=== PATIENT | male | born 1950 | race Caucasian/White ===

== ENCOUNTER → 2024-03-07 12:54 | Outpatient (REF) | payer OTHER, SELFPAY | LOC: HWRCS 12:54 | PROVIDERS: ATTENDING PHYSICIAN Student in an Organized Health Care Education/Training Program; FAMILY PHYSICIAN Internal Medicine | DX: I71.21 Aneurysm of the ascending aorta, without rupture (principal) | CPT/HCPCS: 93306 ==

== ENCOUNTER 2024-11-25 18:15 | Emergency (ER) | payer OTHER, SELFPAY ==
[2024-11-25 18:23] VITALS: BP 164/85
[2024-11-25 18:36] LABS: Hematocrit 44.1 % (39.0-52.0); Hemoglobin 15.1 g/dL (13.0-18.0); Mean Corp Hgb Conc. 34.2 g/dL (33.0-37.0); Mean Corpuscular Volume 90.0 fL (80.0-94.0); Nucleated Red Blood Cells % 0 % (-); Platelet Count 226 10^3/uL (130-400); Red Cell Dist. Width 13.2 % (11.5-14.5)
[2024-11-25 18:58] LABS: Troponin I < 0.012 ng/ml
[2024-11-25 19:01] LABS: ALT (SGPT) 33 U/L (0-50); AST (SGOT) 25 U/L (17-59); Albumin 4.7 g/dl (3.5-5.0); Alkaline Phosphatase 48 U/L (38-126); Blood Urea Nitrogen 28 mg/dl (9-20); Calcium 9.4 mg/dl (8.4-10.2); Carbon Dioxide 21 mmol/L (22-30); Chloride 106 mmol/L (98-107); Glucose 131 mg/dl (70-99); Potassium 4.3 mmol/L (3.5-5.1); Sodium 138 mmol/L (135-145); Total Protein 7.1 g/dl (6.3-8.2); eGFR > 60.00
--- NOTE | 2024-11-25 20:22 | ED.GENMED ---
History of Present Illness
General
Chief Complaint: Cardiac Symptoms
Time Seen by Provider: 11/25/24 20:21
History of Present Illness
History of Present Illness:
FOCUSED PAST MEDICAL HISTORY
- High blood pressure, hyperlipidemia, EF 45%
REVIEW OF OLD RECORDS
- I reviewed the cath report from [address] Brewer that showed normal coronaries but did show an EF of 37% with moderate global hypokinesis
Note:
CHIEF COMPLAINT(S)
Palpitations and frequent premature ventricular contractions (PVCs).
HISTORY OF PRESENT ILLNESS
The patient is a 74-year-old male with a history of decreased ejection fraction and past heart catheterization in 2016. He has been followed by cardiology since 2016 for cardiac concerns, including known premature ventricular contractions (PVCs).
The patient reported typically feeling PVCs once a week or once a month, which he described as 'fluttering.' However, today he began experiencing them with every breath, which prompted his visit. He mentions that the symptoms started today around
5:00 PM. He denies chest pain, and no leg swelling was observed. 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 No electrocardiogram was performed at that visit. His most
recent echocardiogram six months ago showed an ejection fraction of 45%. On arrival, the patients electrocardiogram demonstrated multiple PVCs, with every other beat showing extrasystole. He has not taken his evening dose of carvedilol yet today.
ADDITIONAL HISTORY OBTAINED FROM SOURCES OTHER THAN THE PATIENT
No external sources provided additional information.
EXTERNAL RECORDS REVIEWED
Review of past cardiology records shows decreased ejection fraction and PVCs. No recent cardiology consultations provided additional actionable insights.
CHRONIC MEDICAL CONDITIONS SIGNIFICANTLY AFFECTING CARE
The patient has a history of decreased ejection fraction and is under treatment for heart failure.
SOCIAL HISTORY
No significant changes noted. The patient did not report any alcohol or substance use.
MEDICATIONS
The patient is currently taking carvedilol 6.25 mg twice daily. He also mentioned being prescribed Jardiance and an uncertain medication possibly related to heart failure.
REVIEW OF SYSTEMS
- Cardiovascular: Frequent premature ventricular contractions reported today.
- Respiratory: No labored breathing reported.
- Gastrointestinal: No reports of nausea or vomiting.
PHYSICAL EXAM
General: Alert, no acute distress.
Skin: Warm, dry.
Head: Normocephalic, atraumatic.
Neck: Supple, trachea midline.
Eye Ears, nose, mouth and throat: Oral mucosa moist.
Cardiovascular: Normal peripheral perfusion, No edema observed. Occasional PVCs noted
Respiratory: Respirations are non-labored.
Gastrointestinal: Abdomen nondistended.
Back: Normal range of motion, Normal alignment.
Musculoskeletal: Normal range of motion, normal strength.
Neurological: Alert and oriented to person, place, time, and situation, No focal neurological deficit observed.
Psychiatric: Cooperative, appropriate mood & affect.
PROBLEM LIST
Acute Problems:
- Palpitations with frequent PVCs
Chronic Problems:
- Decreased ejection fraction with history of heart failure
PLAN
- Administer the evening dose of carvedilol while the patient is under monitoring.
- Consult with the cardiology team for further guidance on management of the patients frequent PVCs.
- Continue cardiac monitoring for safety and stability assessment.
- Follow-up echocardiogram is scheduled to reassess ejection fraction.
DIFFERENTIAL DIAGNOSIS
The Differential Diagnosis includes, in no particular order and is not limited to:
1. Premature Ventricular Contractions (PVCs)
2. Atrial Fibrillation
3. Heart Failure exacerbation
4. Coronary Artery Disease
5. Myocardial Ischemia
6. Electrolyte Imbalance
7. Hyperthyroidism
8. Anxiety-induced palpitations
9. Atrial Flutter
10. Ventricular Tachycardia
Disposition:
SUMMARY OF ENCOUNTER
The patient, a 74-year-old male with a history of decreased ejection fraction and premature ventricular contractions (PVCs), presented to the emergency department due to experiencing frequent PVCs with every breath. The patient typically feels these
PVCs once a week or once a month, but the sudden increase prompted the visit. On arrival, his electrocardiogram demonstrated multiple PVCs, with extrasystole occurring every other beat. The patient had not yet taken his evening dose of carvedilol.
Management included administering the evening dose of carvedilol under monitoring to assess the patients response. The cardiology team was consulted to discuss further management strategies for the patient�s frequent PVCs.
PLAN
- Administer the evening dose of carvedilol under monitoring to evaluate the patients response.
- Consult with the cardiology team for guidance on the management of frequent PVCs.
- Continue cardiac monitoring for safety and stability assessment.
- Schedule a follow-up echocardiogram to reassess ejection fraction.
MEDICAL DECISION MAKING
1. Number and Complexity of Problems Addressed: Chronic conditions affecting care include decreased ejection fraction with history of heart failure, and frequent premature ventricular contractions. Differential diagnosis includes premature
ventricular contractions (PVCs), atrial fibrillation, heart failure exacerbation, coronary artery disease, myocardial ischemia, electrolyte imbalance, hyperthyroidism, anxiety-induced palpitations, atrial flutter, and ventricular tachycardia.
2. Data:
Category 1:
- Non-emergency department records reviewed, including review of past cardiology records showing decreased ejection fraction and PVCs.
- My independent interpretation of the electrocardiogram revealed multiple PVCs with every other beat showing extrasystole.
3. Risk:
- Prescription medication was prescribed and administered for carvedilol, adjusting the dose to assess response and manage PVCs.
- Consideration of further cardiology consultation was necessary due to the complexity and risk associated with the patient�s presenting complaint and underlying comorbidities.
DIAGNOSIS
- Premature Ventricular Contractions (PVCs) (I49.3)
- Decreased Ejection Fraction with history of heart failure (I50.9)
EKG
- Sinus, PVCs, runs of ventricular bigeminy, left axis deviation
LABS
- CBC normal, bicarb 21, BUN 28, creatinine 1.0, troponin less than 0.012
UPDATE
- The patient is taking carvedilol 6.25 mg twice daily. We gave an extra half dose and he will take his usual dose tonight. I discussed with Dr. Sood, on-call [facility] medical billing associate
Phy Exam
Physical Exam
Physical Exam:
See HPI
Course
Orders/Labs/Results
Orders:
Orders
11/25/24 18:16
Electrocardiogram (*1) Urgent
Reason for Study: Palpitations
EKG- Treatment ONCE
11/25/24 18:28
Complete Blood Count/With Diff Urgent
Comprehensive Metabolic Panel Urgent
Magnesium Urgent
Comment: ADD ON
Troponin I Urgent
11/25/24 20:24
Add On- LAB Urgent
Tests Added?: magnesium
11/25/24 20:32
Carvedilol [Coreg] 3.125 mg PO NOW STA
Abnormal Lab Results
11/25/24
18:28
MPV 10.5 H fL
(7.4-10.4)
Carbon Dioxide 21 L mmol/L
(22-30)
BUN 28 H mg/dl
(9-20)
Glucose 131 H mg/dl
(70-99)
11/25/24 18:28
11/25/24 18:28
Vital Signs
Initial and Last Documented VS:
Initial Vital Signs
Temp Pulse Resp BP Pulse Ox
36.8 C 80 16 164/85 100
11/25/24 18:23 11/25/24 18:23 11/25/24 18:23 11/25/24 18:23 11/25/24 18:23
Last Documented Vital Signs
Temp Pulse Resp BP Pulse Ox
36.8 C 70 16 144/72 100
11/25/24 18:23 11/25/24 20:42 11/25/24 18:23 11/25/24 20:42 11/25/24 20:23
*Pulse Oximetry
SaO2: 100
Oxygen Mode of Delivery: Room air
Patient hypoxic: no
*Critical Care Note
Total Time (30-74mins, 75-104mins- exclusive of procedures): Not Applicable
ED Attending Note
-
Portions of this chart may have been created with voice recognition software.� Occasional wrong word or��sound alike� substitutions may have occurred due to the inherent limitations of voice recognition software.
Discharge Plan
Departure
Prescriptions:
No Action
terazosin 1 MG capsule
2 mg PO HS
simvastatin 40 MG tablet
40 mg PO HS
carvedilol 3.125 MG tablet
3.125 mg PO DAILY
Patient Comments:
pt normally takes at 7pm
aspirin [Mateo Chewable Aspirin] 81 MG tablet,chewable
81 mg PO DAILY
lisinopril 5 MG tablet
5 mg PO DAILY
oxybutynin chloride 5 MG tablet
5 mg PO HS
mometasone [Asmanex Twisthaler] 220 MCG aerosol powdr breath activated
110 mcg IH HS
Interventions
Interventions:
*Risk Screen - Suicide Last Done: 11/25/24 18:23
*Neglect/Abuse Screening Last Done: 11/25/24 18:23
Discharge Date and Time
Print Language: PERSIAN
[2024-11-25 20:42] VITALS: BP 144/72
[2024-11-25] MEDS: COREG 3.125 MG PO (20:42)
[2024-11-25 20:52] LABS: Magnesium 2.1 mg/dl (1.6-2.3)
[2024-11-25 21:00] VITALS: BP 134/79
== END 2024-11-25 21:14 | disposition home or self-care (01) ==
LOC: EMR 18:15
PROVIDERS: Emergency Medicine; EMERGENCY PHYSICIAN Emergency Medicine
DX: I49.3 Ventricular premature depolarization (principal); E78.5 Hyperlipidemia, unspecified; I11.0 Hypertensive heart disease with heart failure; I50.9 Heart failure, unspecified
CPT/HCPCS: 99284; 80053; 83735; 84484; 85025; 93005

== ENCOUNTER → 2024-12-08 12:50 | Outpatient (REF) | payer OTHER, SELFPAY | LOC: HWRCS 12:50 | PROVIDERS: ATTENDING PHYSICIAN Student in an Organized Health Care Education/Training Program; FAMILY PHYSICIAN Internal Medicine | DX: I42.8 Other cardiomyopathies (principal) | CPT/HCPCS: 93306 ==

== ENCOUNTER → 2024-12-18 13:08 | Outpatient (REF) | payer OTHER, SELFPAY | LOC: RAD 13:08 | PROVIDERS: ATTENDING PHYSICIAN Student in an Organized Health Care Education/Training Program; FAMILY PHYSICIAN Internal Medicine | DX: I77.810 Thoracic aortic ectasia (principal) | CPT/HCPCS: 71260; Q9967 ==